=== PATIENT | female | born 1945 | race Caucasian/White ===

== ENCOUNTER → 2017-05-09 | Outpatient (CLI) | payer MEDICARE, OTHER ==
[~2017-05-09] MED LIST: ACYC200O4 PO; ALEN70TA2 PO; AMIT25TA9 PO; ASPI-587 PO; CA C1TAB75 PO; MELO-195 PO; OMEG-12 PO; SIMV20TA PO
--- NOTE | 2017-05-09 14:39 | Diagnostic Imaging Report ---
INDICATION: Left hip pain. FINDINGS: Two views of the left hip show no fracture, dislocation, or other acute abnormalities. IMPRESSION: Negative left hip. Dictated by: Dictated on workstation # [id number]
--- NOTE | 2017-05-09 14:39 | Diagnostic Imaging Report ---
INDICATION: Left radicular leg pain. TECHNIQUE: AP and lateral views of the lumbar spine were obtained. FINDINGS: The vertebral body height and alignment appear normal. There is disc space narrowing at T11-12 with vacuum phenomena and sclerosis of the opposing endplates. There is slight disc space narrowing at L3-4. There is no spondylolysis or spondylolisthesis. IMPRESSION: Moderate degenerative disc changes at T12-L1. Minimal degenerative disc changes at L3-4. No acute abnormality is seen. Dictated by: Dictated on workstation # [id number]
--- NOTE | 2017-05-09 14:40 | Diagnostic Imaging Report ---
INDICATION: Left pelvic pain. FINDINGS: AP and oblique views of the sacroiliac joints show symmetric joint spaces with no sclerosis. The sacrum is intact. IMPRESSION: Negative bilateral sacroiliac joints. Dictated by: Dictated on workstation # [id number]
== END ==
LOC: RAD 13:49
PROVIDERS: ATTEND Nurse Practitioner Family
DX: M51.35 Other intervertebral disc degeneration, thoracolumbar region (principal); M25.552 Pain in left hip; R10.2 Pelvic and perineal pain
CPT/HCPCS: 72100; 72202; 73502

== ENCOUNTER → 2017-12-27 | Outpatient (CLI) | payer MEDICARE, OTHER ==
--- NOTE | 2017-12-27 11:33 | Diagnostic Imaging Report ---
DATE OF STUDY: 12/27/2017 10:14 AM STUDY PERFORMED: Dual energy radiographic absorptiometry (DXA) of the lumbar spine and bilateral hips. HISTORY: 72 years-old Female in need of bone mineral density screening. PREVIOUS STUDIES: 06/13/2013 FINDINGS: Examination of transmission images of the lumbar spine and hip demonstrates degenerative changes. REGION L2-L4 PA total: Bone mineral density g/cm2 1.143 SD from young normal (T) -0.5 SD from age-matched control (Z) 1.3 Right femoral neck: Bone mineral density g/cm2 0.860 SD from young normal (T) -1.3 SD from age-matched control (Z) 0.6 Right hip total: Bone mineral density g/cm2 0.975 SD from young normal (T) -0.3 SD from age-matched control (Z) 1.4 Left femoral neck: Bone mineral density g/cm2 0.876 SD from young normal (T) -1.2 SD from age-matched control (Z) 0.7 Left hip total: Bone mineral density g/cm2 0.920 SD from young normal (T) -0.7 SD from age-matched control (Z) 1.0 The mean bone mineral density measures 0.948 g/cm2, with a T score of -0.5 and Z score of 1.2, and there has been a 1.9% increase in the mean bone density since 2013. According to the FRAX WHO fracture risk assessment tool, for an untreated patient, there is a 9.8 percent 10-year risk of major osteoporotic fracture and a 1.3 percent 10-year risk of hip fracture. IMPRESSION: Osteopenia, with a T score of -1.3 in the right femoral neck. Reductions in bone density to 2.5 or more standard deviations below those of young normal subjects is considered to represent osteoporosis in the absence of other causes of bone loss. Reduction in bone density to 1-2.5 standard deviations below those of young normal subjects fulfills the definition of osteopenia. (WHO Tech Rep Ser 1994; No. 843.6; J Bone [place] Res 1994; 9:1137). Dictated by: Dictated on workstation # [id number]
--- NOTE | 2017-12-28 08:15 | Diagnostic Imaging Report ---
INDICATION: Routine screening. Comparison is made with prior exam from 06/02/2015 and 06/13/2013. 2-D and 3-D bilateral screening mammography was performed with CAD. The current study was also evaluated with a Computer Aided Detection (CAD) system. FINDINGS: Both breasts are heterogeneously dense, limiting the sensitivity of mammography. The parenchymal pattern appears stable. There are benign calcifications bilaterally. No mass or malignant-appearing microcalcifications are seen. The axillae are unremarkable. IMPRESSION: No mammographic features suspicious for malignancy are identified. ACR BI-RADS Category 2: Benign findings. Result letter will be mailed to the patient. Note: At least 10% of breast cancer is not imaged by mammography. Dictated by: Dictated on workstation # [id number]
== END ==
LOC: RAD 09:26
PROVIDERS: ATTEND Family Medicine
DX: Z12.31 Encounter for screening mammogram for malignant neoplasm of breast (principal); Z13.820 Encounter for screening for osteoporosis; M85.88 Other specified disorders of bone density and structure, other site
CPT/HCPCS: 77067; 77080

== ENCOUNTER → 2019-03-18 | Outpatient (CLI) | payer MEDICARE, OTHER ==
--- NOTE | 2019-03-18 15:03 | Diagnostic Imaging Report ---
INDICATION: Routine screening. COMPARISON: 12/27/2017 and 06/02/2015. TECHNIQUE: 2D and 3D bilateral screening mammography was performed with CAD. FINDINGS: Both breasts are heterogeneously dense, limiting the sensitivity of mammography. There are benign calcifications in both breasts. No mass or malignant appearing microcalcifications are seen. The axillae are unremarkable. IMPRESSION: No mammographic features suspicious for malignancy are identified. ACR BI-RADS Category 2: Benign findings. Result letter will be mailed to the patient. Note: At least 10% of breast cancer is not imaged by mammography. Dictated by: Dictated on workstation # [id number]
== END ==
LOC: RAD 13:41
PROVIDERS: ATTEND Nurse Practitioner Family
DX: Z12.31 Encounter for screening mammogram for malignant neoplasm of breast (principal)
CPT/HCPCS: 77067

== ENCOUNTER → 2020-04-21 | Outpatient (CLI) | payer MEDICARE, OTHER ==
--- NOTE | 2020-04-21 16:18 | Diagnostic Imaging Report ---
INDICATION: Routine screening. COMPARISON: 03/18/2019 and 12/27/2017. TECHNIQUE: 2D and 3D bilateral screening mammography was performed with CAD. FINDINGS: Both breasts are heterogeneously dense, limiting the sensitivity of mammography. The parenchymal pattern is stable. No mass or malignant appearing microcalcifications are seen. There are benign calcifications. The axillae are unremarkable. IMPRESSION: No mammographic features suspicious for malignancy are identified. ACR BI-RADS Category 2: Benign findings. Result letter will be mailed to the patient. Note: At least 10% of breast cancer is not imaged by mammography. Dictated by: Dictated on workstation # [id number]
== END ==
LOC: RAD 15:00
PROVIDERS: ATTEND Family Medicine
DX: Z12.31 Encounter for screening mammogram for malignant neoplasm of breast (principal)
CPT/HCPCS: 77063; 77067

== ENCOUNTER → 2021-01-12 | Outpatient (CLI) | payer MEDICARE, OTHER ==
--- NOTE | 2021-01-12 14:51 | Diagnostic Imaging Report ---
INDICATION: Hip pain. 2 views were obtained. Comparison made with prior examination of 05/09/2017. FINDINGS: The alignment is normal. There is no fracture or dislocation. There are no lytic or sclerotic lesions. Soft tissues are unremarkable. IMPRESSION: No focal abnormality of the left hip. Dictated by: Dictated on workstation # [id number]
--- NOTE | 2021-01-12 14:54 | Diagnostic Imaging Report ---
INDICATION: Back and hip pain. FINDINGS: The alignment of the lumbar spine is normal. The vertebral body heights are well-maintained. No spondylolysis or spondylolisthesis. No fractures are identified. There are some lower lumbar hypertrophic degenerative facet disease. There are Modic changes in the endplates at T12-L1. IMPRESSION: Lumbar spondylosis and degenerative disease as described otherwise unremarkable. Dictated by: Dictated on workstation # [id number]
== END ==
LOC: RAD
PROVIDERS: ATTEND Family Medicine
DX: M47.816 Spondylosis without myelopathy or radiculopathy, lumbar region (principal)
CPT/HCPCS: 72100; 73502

== ENCOUNTER → 2021-04-22 | Outpatient (CLI) | payer MEDICARE, OTHER ==
--- NOTE | 2021-04-25 09:23 | Diagnostic Imaging Report ---
INDICATION: Routine screening. COMPARISON: 04/21/2020 and 03/18/2019. TECHNIQUE: 2D and 3D bilateral screening mammography was performed with CAD. FINDINGS: Both breasts are heterogeneously dense, limiting the sensitivity of mammography. No mass or malignant-appearing microcalcifications are seen. There are benign calcifications bilaterally. The axillae are unremarkable. IMPRESSION: No mammographic features suspicious for malignancy are identified. ACR BI-RADS Category 2: Benign findings. Result letter will be mailed to the patient. Note: At least 10% of breast cancer is not imaged by mammography. Dictated by: Dictated on workstation # [id number]
== END ==
LOC: RAD 15:45
PROVIDERS: ATTEND Family Medicine
DX: Z12.31 Encounter for screening mammogram for malignant neoplasm of breast (principal)
CPT/HCPCS: 77063; 77067

== ENCOUNTER → 2022-03-27 | Outpatient (CLI) | payer MEDICARE, OTHER ==
--- NOTE | 2022-03-27 17:05 | Diagnostic Imaging Report ---
INDICATION: Arthritis with wrist pain. No history of trauma. EXAMINATION: Left wrist, 3 views. FINDINGS: The carpal bones show no subluxation. There are rather advanced erosive changes along the articulating surface at the STT joint. The radiocarpal joint is well-preserved. The lunate shows a few subcortical cystic changes. There is no evidence of intercarpal ligament disruption. There are no findings to indicate osteonecrosis. 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 Dictated by: Dictated on workstation # [id number]
--- NOTE | 2022-03-27 17:06 | Diagnostic Imaging Report ---
INDICATION: Pain. Injured doing yoga. EXAMINATION: Left ankle, 3 views. FINDINGS: The ankle mortise is in good alignment. The articulating surfaces are smooth. The joint spaces are well-maintained. No fractures. No soft tissue swelling. IMPRESSION: Normal left ankle. Dictated by: Dictated on workstation # [id number]
== END ==
LOC: RAD 12:24
PROVIDERS: ATTEND Family Medicine
DX: M19.031 Primary osteoarthritis, right wrist (principal); M25.572 Pain in left ankle and joints of left foot
CPT/HCPCS: 73110; 73610

== ENCOUNTER → 2022-04-25 | Outpatient (CLI) | payer MEDICARE, OTHER ==
--- NOTE | 2022-04-25 14:52 | Diagnostic Imaging Report ---
INDICATION: Routine screening. COMPARISON: 04/22/2021 and 04/21/2020. TECHNIQUE: 2D and 3D bilateral screening mammography was performed with CAD. FINDINGS: Both breasts are heterogeneously dense, limiting the sensitivity of mammography. The overall parenchymal pattern is stable. No mass or malignant-appearing microcalcifications are seen. There are benign calcifications bilaterally. The axillae are unremarkable. IMPRESSION: No mammographic features suspicious for malignancy are identified. ACR BI-RADS Category 2: Benign findings. Result letter will be mailed to the patient. Note: At least 10% of breast cancer is not imaged by mammography. Dictated by: Dictated on workstation # [id number]
== END ==
LOC: RAD 11:21
PROVIDERS: ATTEND Family Medicine
DX: Z12.31 Encounter for screening mammogram for malignant neoplasm of breast (principal)
CPT/HCPCS: 77063; 77067

== ENCOUNTER 2023-03-07 10:43 | Outpatient (RCR) | payer MEDICARE, OTHER | END 2023-03-10 | disposition home or self-care (01) | PROVIDERS: ATTEND Nurse Practitioner Family | DX: M25.551 Pain in right hip (principal) ==

== ENCOUNTER → 2023-03-13 | Outpatient (CLI) | payer MEDICARE, OTHER ==
--- NOTE | 2023-03-13 17:02 | Diagnostic Imaging Report ---
INDICATION: Postmenopausal female. COMPARISON: 12/27/2017. FINDINGS: AP Spine L2-L4: [BMD (g/cm2): 1.234] [T-Score: 0.3] [Z-Score: 2.1] [BMD Previous: 1.143] [BMD % Change: 8.0*] LT Hip Neck: [BMD (g/cm2): 0.929] [T-Score: -0.8] [Z-Score: 1.3] LT Hip Total: [BMD (g/cm2):0.984] [T-Score:-0.2] [Z-Score: 1.7] [BMD Previous: 0.920] [BMD % Change: 7.0*] RT Hip Neck: [BMD (g/cm2):0.953] [T-Score:-0.6] [Z-Score:1.4] RT Hip Total: [BMD (g/cm2):1.036] [T-score:0.2] [Z-Score:2.0] [BMD Previous:0.975] [BMD % Change:6.3*] *Indicates significant change from prior examination based on 95% confidence level. World Health Organization criteria for BMD interpretation classify patients as Normal (T-score at or above -1.0), Osteopenic (T-score between -1.0 and -2.5) or Osteoporotic (T-score at or below -2.5). LIMITATIONS AND MODIFICATION: Degenerative change in the lumbar spine may falsely elevate bone density. FRACTURE RISK (FRAX SCORE): The ten year probability of (%): Major Osteoporotic Fracture: [na] Hip Fracture: [na] IMPRESSION: 1. Normal bone mineral density. 2. There has been a statistically significant increase in BMD since prior exam, detailed above. 3. See below National Osteoporosis Foundation guidelines on when to potentially initiate pharmacologic therapy. Based on the National Osteoporosis Foundation Guidelines, pharmacologic treatment should be initiated in any of the following, unless clinical conditions suggest otherwise: * Any patient with prior fragility fracture of the hip or vertebrae. A spine fracture indicates 5X risk for subsequent spine fracture and 2X risk for subsequent hip fracture. * Osteoporosis (T-score <-2.5). * Postmenopausal women and men age 50 and older with low bone mass/osteopenia (T-score between -1.0 and -2.5) by DXA and 10-year major osteoporotic fracture greater than 20% or a 10-year probability of hip fracture greater than 3%. These fracture risks are supplied above in the FRAX score, if applicable. * Clinician judgement and/or patient preferences may indicate treatment for people with 10-year fracture probabilities above or below these levels. Dictated by: Dictated on workstation # [id number]
== END ==
LOC: RAD 12:32
PROVIDERS: ATTEND Nurse Practitioner Family
DX: Z78.0 Asymptomatic menopausal state (principal)
CPT/HCPCS: 77080

== ENCOUNTER 2023-04-05 13:00 | Outpatient (RCR) | payer MEDICARE, OTHER | END 2023-04-10 | disposition home or self-care (01) | PROVIDERS: ATTEND Nurse Practitioner Family | DX: M25.551 Pain in right hip (principal) ==